=== PATIENT | male | born 1950 | race African-American/Black ===

== ENCOUNTER 2017-03-31 13:33 | Observation (INO) | payer OTHER ==
[~2017-03-31] VITALS: Ht 175.3 cm; Wt 120.1 kg
[2017-03-31 14:26] LABS: MCH 30.5 PG (29.0-34.0); MCV 89.8 FL (86-99); MEAN PLAT.VOLUME 9.4 uM^3 (9.0-12.4); PLATELET COUNT 254 K/uL (156-360); RBC DIS.WIDTH-CV 12.3 % (11.8-14.6); RBC DIS.WIDTH-SD 40.5 % (39-53); RED BLOOD COUNT 4.79 M/uL (4.00-5.50); WHITE BLOOD COUNT 6.3 K/uL (4.1-10.2)
[2017-03-31 14:36] LABS: CHLORIDE 105 mEq/L (99-109); POTASSIUM 3.8 mEq/L (3.7-5.4); SODIUM 136 mEq/L (136-147)
[2017-03-31 14:38] LABS: GLUCOSE 107 mg/dL (70-99)
[2017-03-31 14:39] LABS: ANION GAP 10 MEQ/L (2-14); PROTHROMBIN TIME 10.3 (9.2-11.2)
[2017-03-31 14:41] LABS: GFR ESTIMATE (CALCULATED) > 59 mL/min/
[2017-03-31 14:42] LABS: UREA NITROGEN (BUN) 17 mg/dL (9-23)
[2017-03-31 14:48] LABS: TROP-I INTERPRETATION NEGATIVE; TROPONIN-I 0.01 ng/mL (0.0-0.30)
[2017-03-31] MEDS ORDERED: NITROFURANTOIN100 MG PO (16:00)
[2017-03-31] MEDS ORDERED: PRAVASTATIN SOD40 MG PO (16:01)
[2017-03-31] MEDS ORDERED: GABAPENTIN100 MG PO (16:01)
[2017-03-31] MEDS ORDERED: RANITIDINE HCL150 MG PO (16:01)
[2017-03-31] MEDS ORDERED: GLIPIZIDE ER2.5 MG PO (16:01)
[2017-03-31] MEDS ORDERED: RANITIDINE HCL150 M1 PO (16:01)
[2017-03-31] MEDS ORDERED: LO-DOSE ASPIRIN81 M2 PO (16:02)
[2017-03-31] MEDS ORDERED: BIOFREEZE TP (16:02)
[2017-03-31 17:46] LABS: ADD MIUA? YES; BILIRUBIN NEGATIVE; BLOOD SMALL; COLOR YELLOW ((YELLOW)); GLUCOSE (STRIP) NEGATIVE; KETONES NEGATIVE; LEUKOCYTES NEGATIVE; NITRITE NEGATIVE; PROTEIN (STRIP) NEGATIVE; SPECIFIC GRAVITY 1.016 (1.000-1.030)
[2017-03-31 17:55] LABS: BACTERIA 2+ /HPF; EPITHELIAL CELLS RARE /HPF; HYALINE CASTS 0-5 /LPF; MUCUS 1+ /LPF; RED BLOOD CELLS 0-5 /HPF (0-5); UCUL ADDED? NO; WHITE BLOOD CELLS 0-5 /HPF (0-5)
[2017-03-31 17:59] LABS: HDL CHOLESTEROL 44 MG/DL (Desirable>=40); LDL CHOLESTEROL 126 mg/dL (Desirable<100); NON-HDL CHOLESTEROL 144 mg/dL (Desirable<160); SAMPLE HEMOLYSIS CHECK 0; SAMPLE ICTERIC CHECK 0; SAMPLE LIPEMIA CHECK 0; TOTAL CHOLESTEROL 188 mg/dL (Desirable<200); TRIGLYCERIDES 89 MG/DL (Normal: <150)
[2017-03-31 18:00] VITALS: BP 140/67
[2017-03-31 21:10] LABS: TROP-I INTERPRETATION NEGATIVE; TROPONIN-I < 0.01 ng/mL (0.0-0.30)
[2017-04-01 00:01] VITALS: BP 105/53
[2017-04-01 03:54] LABS: HEMATOCRIT 44.9 % (38.0-50.0); MCH 30.4 PG (29.0-34.0); MCHC 33.4 G/DL (30.0-36.0); MCV 90.9 FL (86-99); MEAN PLAT.VOLUME 9.3 uM^3 (9.0-12.4); PLATELET COUNT 266 K/uL (156-360); RBC DIS.WIDTH-CV 12.6 % (11.8-14.6); RBC DIS.WIDTH-SD 41.8 % (39-53); RED BLOOD COUNT 4.94 M/uL (4.00-5.50); WHITE BLOOD COUNT 6.2 K/uL (4.1-10.2)
[2017-04-01 04:02] VITALS: BP 109/72
[2017-04-01 04:15] LABS: TROP-I INTERPRETATION NEGATIVE; TROPONIN-I < 0.01 ng/mL (0.0-0.30)
[2017-04-01 04:23] LABS: CHLORIDE 107 mEq/L (99-109); POTASSIUM 4.4 mEq/L (3.7-5.4); SODIUM 137 mEq/L (136-147)
[2017-04-01 04:24] LABS: GLUCOSE 96 mg/dL (70-99)
[2017-04-01 04:26] LABS: ANION GAP 9 MEQ/L (2-14)
[2017-04-01 04:28] LABS: GFR ESTIMATE (CALCULATED) > 59 mL/min/
[2017-04-01 04:29] LABS: UREA NITROGEN (BUN) 13 mg/dL (9-23)
[2017-04-01 07:15] VITALS: BP 120/73
[2017-04-01] MEDS ORDERED: BACTRIM,SEPT1 TABLET PO (10:22)
[2017-04-01 15:30] VITALS: BP 134/63
== END 2017-04-01 20:45 | disposition home or self-care (01) ==
LOC: EME 13:33 → EDOF 16:49 → 5WEST 16:49 → EDOF 16:49 → 5WEST 17:37
PROVIDERS: Emergency Medicine; Hospitalist
DX: R07.9 Chest pain, unspecified (principal); R42 Dizziness and giddiness; R61 Generalized hyperhidrosis; R06.02 Shortness of breath; E78.5 Hyperlipidemia, unspecified; E11.9 Type 2 diabetes mellitus without complications; Z87.891 Personal history of nicotine dependence; Z79.84 Long term (current) use of oral hypoglycemic drugs; R20.0 Anesthesia of skin; K21.9 Gastro-esophageal reflux disease without esophagitis
CPT/HCPCS: 71020; 80048; 80061; 81003; 82948; 84484; 85027; 85610; 85730; 93005; 99281; 99285; G0378; J1644; J7030